=== PATIENT | female | born 1985 | race Caucasian/White ===

== ENCOUNTER 2017-03-05 07:13 | Inpatient (IN) | payer BC ==
[2017-03-05] VITALS (49 sets, daily range): BP systolic 91–159; BP diastolic 62–96; PULSE 69–133; TEMP 98.1–98.2
[~2017-03-05] VITALS: Ht 160 cm; Wt 80.5 kg
[2017-03-05 08:27] LABS: BASO % 0.5 % (0.0-2.0); EOS # 0.2 (0.0-0.7); EOS % 2.2 % (0-4.0); GRAN # 4.7 (1.4-6.5); GRAN % 59.9 % (42.2-75.2); HEMOGLOBIN 12.5 g/dl (12.5-16.0); LYMPH # 2.2 (1.2-3.4); LYMPH % 28.6 % (20.0-51.0); MEAN CELL VOLUME 88 fl (80.0-100.0); MEAN CORPUSCULAR HEMOGLOBIN 32 pg (27.0-31.0); MEAN CORPUSCULAR HGB CONC 36 g/dl (33.0-37.0); MEAN PLATELET VOLUME 11.3 fl (7.4-10.4); MONO # 0.7 (0.1-0.6); MONO % 8.3 % (1.7-9.3); PLATELET COUNT 192 K/mm3 (130-400); RED BLOOD COUNT 3.96 M/mm3 (4.10-5.30); REDCELL DISTRIBUTION WIDTH-CV 12.3 % (11.5-14.5); WHITE BLOOD COUNT 7.8 K/mm3 (4.8-10.8)
[2017-03-05 08:31] LABS: HEMATOCRIT 34.9 % (37.0-47.0)
[2017-03-06 00:30] VITALS: BP 148/82; PULSE 76; TEMP 97.8
[2017-03-06 05:10] VITALS: BP 123/70; PULSE 78; TEMP 97.7
[2017-03-06 09:30] VITALS: BP 127/71; PULSE 79; TEMP 97.6
[2017-03-06 13:30] VITALS: BP 139/98; PULSE 80; TEMP 97.6
[2017-03-06 16:59] VITALS: BP 111/62; PULSE 71; TEMP 97.8
[2017-03-06 20:30] VITALS: BP 129/93; PULSE 72; TEMP 97.5
[2017-03-07] VITALS: BP 130/84; PULSE 70
[2017-03-07] MEDS ORDERED: PERCOCET 325 MG1 TA2 PO (07:32)
[2017-03-07] MEDS ORDERED: IBU800 M1 PO (07:32)
[2017-03-07 10:00] VITALS: BP 141/90; PULSE 87; TEMP 97.1
== END 2017-03-07 16:45 | disposition home or self-care (01) | DRG 775 ==
LOC: OB 07:13 → LDR 07:13 → OB 20:30
PROVIDERS: Obstetrics & Gynecology
PROC: 10E0XZZ Delivery of Products of Conception, External Approach (ICD-10-PCS; principal; 2017-03-05)
PROC: 0KQM0ZZ Repair Perineum Muscle, Open Approach (ICD-10-PCS; 2017-03-05)
DX: O48.0 Post-term pregnancy (principal); O69.81X0 Labor and delivery complicated by cord around neck, without compression, not applicable or unspecified; O13.4 Gestational [pregnancy-induced] hypertension without significant proteinuria, complicating childbirth; O70.1 Second degree perineal laceration during delivery; Z3A.40 40 weeks gestation of pregnancy; Z37.0 Single live birth
CPT/HCPCS: J2590; J2795; J7120

== ENCOUNTER 2019-10-28 18:09 | Emergency (ER) | payer BC ==
[~2019-10-28] VITALS: Ht 160 cm; Wt 65.5 kg
[~2019-10-28 18:09] MED LIST: IBU800 M1 PO; PERCOCET 325 MG1 TA2 PO
[2019-10-28 18:21] VITALS: TEMP 98.7
[2019-10-28 18:58] LABS: BASO # 0.1 (0.0-0.2); BASO % 0.5 % (0.0-2.0); EOS # 0.1 (0.0-0.7); EOS % 1.4 % (0-4.0); GRAN # 7.1 (1.4-6.5); GRAN % 71.9 % (42.2-75.2); HEMATOCRIT 38.1 % (37.0-47.0); HEMOGLOBIN 13.7 g/dl (12.5-16.0); LYMPH % 19.8 % (20.0-51.0); MEAN CELL VOLUME 88 fl (80.0-100.0); MEAN CORPUSCULAR HEMOGLOBIN 32 pg (27.0-31.0); MEAN CORPUSCULAR HGB CONC 36 g/dl (33.0-37.0); MEAN PLATELET VOLUME 10.2 fl (7.4-10.4); MONO # 0.6 (0.1-0.6); PLATELET COUNT 223 K/mm3 (130-400); RED BLOOD COUNT 4.33 M/mm3 (4.10-5.30); REDCELL DISTRIBUTION WIDTH-CV 11.9 % (11.5-14.5)
[2019-10-28 19:08] LABS: ALBUMIN 4.6 gm/dL (3.5-5.0); BILIRUBIN,TOTAL 0.5 mg/dL (0.0-1.0); CALCIUM 9.5 mg/dL (8.4-10.2); CREATININE, serum 0.47 (0.52-1.25); POTASSIUM 3.6 mmol/L (3.4-5.0)
[2019-10-28 20:52] VITALS: BP 138/85; PULSE 86
== END 2019-10-28 20:59 | disposition home or self-care (01) ==
LOC: COL.ER 18:09
PROVIDERS: Physician Assistant
DX: O03.4 Incomplete spontaneous abortion without complication (principal)
CPT/HCPCS: J7030

== ENCOUNTER → 2021-02-18 | Outpatient (CLI) | payer BC ==
[~2021-02-18] MED LIST changes: +AMOXICILLIN 8751 TAB PO; +ASPIRIN 81M81 MG/TA2 PO; +MOTRIN 800800 MG/TAB PO; +PROCARDIA XL90 MG PO; +TYLENOL 325MG325 MG PO
== END ==
LOC: ZCOL.LAB 09:07
DX: Z20.822 Contact with and (suspected) exposure to COVID-19 (principal)

== ENCOUNTER 2021-02-22 06:09 | Inpatient (IN) | payer BC ==
[2021-02-22] VITALS (44 sets, daily range): BP systolic 107–155; BP diastolic 60–93; PULSE 71–134; TEMP 97.5–98.7
[~2021-02-22] VITALS: Ht 157.5 cm; Wt 85.9 kg
[~2021-02-22 06:09] MED LIST changes: -AMOXICILLIN 8751 TAB PO; -ASPIRIN 81M81 MG/TA2 PO; -MOTRIN 800800 MG/TAB PO; -PROCARDIA XL90 MG PO; -TYLENOL 325MG325 MG PO
--- NOTE | 2021-02-22 06:30 | NUR ---
PT AMBULATORY TO UNIT WITH /FOB. ASSISTED INTO GOWN AND PLACED ON EFM/TOCO. DENIES WATER BREAKING OR LEAKING OF FLUID. REPORTS POSITIVE MOVEMENT. EDUCATED ON POC AND ORIENTED TO LABOR ROOM. DENIES FURTHER QUESTIONS OR CONCERNS. CATEGORY 1 STRIP UPON ARRIVAL. PER PT REPORT AND TOCO READING, PT HAS NOT HAD ANY CONTRACTIONS PRIOR TO ADMISSION THIS MORNING.
[2021-02-22] MEDS ORDERED: PROCARDIA XL90 MG PO (06:59)
[2021-02-22] MEDS ORDERED: ASPIRIN 81M81 MG/TA2 PO (07:00)
[2021-02-22 07:33] LABS: BASO % 0.5 % (0.0-2.0); EOS # 0.2 (0.0-0.7); EOS % 2.5 % (0-4.0); GRAN # 5.3 (1.4-6.5); GRAN % 61.8 % (42.2-75.2); HEMOGLOBIN 11.5 g/dl (12.5-16.0); LYMPH # 2.4 (1.2-3.4); LYMPH % 27.5 % (20.0-51.0); MEAN CELL VOLUME 86 fl (80.0-100.0); MEAN CORPUSCULAR HEMOGLOBIN 30 pg (27.0-31.0); MEAN CORPUSCULAR HGB CONC 34 g/dl (33.0-37.0); MEAN PLATELET VOLUME 10.9 fl (7.4-10.4); MONO # 0.6 (0.1-0.6); MONO % 7.3 % (1.7-9.3); PLATELET COUNT 240 K/mm3 (130-400); RED BLOOD COUNT 3.88 M/mm3 (4.10-5.30); REDCELL DISTRIBUTION WIDTH-CV 13.6 % (11.5-14.5)
[2021-02-22 07:41] LABS: HEMATOCRIT 33.4 % (37.0-47.0)
--- NOTE | 2021-02-22 08:57 | NUR ---
AT BEDSIDE ASSESSING PT AND DISCUSSING POC. SVE /-2. AROM WITH CLEAR FLUID AT THIS TIME. CONTINUE WITH CURRENT IOL POC. PT MAY HAVE EPIDURAL WHENEVER SHE IS READY.
--- NOTE | 2021-02-22 10:39 | NUR ---
PT ASSISTED TO EDGE OF BED FOR EPIDURAL PLACEMENT. VIJI COCKTAIL LOUNGE MANAGER AT BEDSIDE DISCUSSING RISKS, CONSENTS SIGNED. DIFFICULTY TRACING EFM DUE TO MATERNAL POSITIONING. SINGLE SHOT @ 1030. PT TOLERATED PROCEDURE WELL. VITAL SIGNS REMAIN STABLE THROUGHOUT.
--- NOTE | 2021-02-22 11:28 | NUR ---
1128: 4 MINUTE DECEL INTO THE 60'S. PT HYPOTENSIVE. EPHEDRINE IV ADMINISTERED PER PROTOCOL. LR BOLUS INFUSING. PT TURNED TO LL POSITION. NO CHANGE IN EFM/DECEL. PT TURNED TO RIGHT LATERAL POSITION. HEART RATE BEGAN TO RECOVER. PT'S BP BEGINNING TO STABILIZE. PT DENIES SYMPTOMS OF HYPOTENSION. 1136: 2 MINUTE DECEL INTO THE 60'S. LR BOLUS CONTINUES INFUSING. HEART RATE BEGINS TO RECOVER WITH POSITION CHANGE. AT BEDSIDE HE WAS ROUNDING ON HIS PATIENTS OVER HIS LUNCH HOUR. NO NEW ORDERS AT THIS TIME. "MONITOR AND MANAGE THE BLOOD PRESSURE WITH CURRENT ORDERS." CATEGORY 1 STRIP FOLLOWING EVENT. MODERATE VARIABILITY. HEART RATE RETURNS TO BASELINE WITH ACCELERATIONS.
--- NOTE | 2021-02-22 14:55 | NUR ---
1455: AT BEDSIDE, SVE: COMPLETE, BEGINS PRACTICE PUSHING WITH PATIENT. PT MOVES HEAD WELL. WILL CONTINUE TO PUSH WITH THIS NURSE. 1536: OF VIABLE MALE PER . PLACED ON MATERNAL ABDOMEN. CORD CLAMPED X2 AND CUT BY FOB. CARE ASSUMED BY ANU ALEXANDER. MOTHER VITAL SIGNS STABLE. LOCHIA WNL. 1538: OF PLACENTA. PITOCIN BOLUS STARTED PER PROTOCOL. BEGINS REPAIR OF 2ND DEGREE PERINEAL LACERATION. LOCHIA REMAINS WNL. FUNDUS FIRM AT UMBILICUS. WILL CONTINUE PP RECOVERY PER PROTOCOL.
--- NOTE | 2021-02-22 17:45 | NUR ---
PT REPORTS FULL SENSATION TO BLE. ABLE TO ASSIST STAFF TO EDGE OF BED. EPIDURAL CATHETER REMOVED. ABLE TO FULLY BEAR WEIGHT. AMBULATORY TO RESTROOM. ASSISTED WITH KP CARE AND INTO NEW UNDERWEAR AND PAD. LOCHIA SCANT/NO CLOTS. FUNDUS FIRM AT UMBILICUS. TOLERATED AMBULATION WELL. DENIES DIZZINESS OR DECREASE IN BLE SENSATION. VITAL SIGNS REMAIN STABLE. PT ASSISTED TO ROOM 207 VIA WHEELCHAIR TO CONTINUE CARES. ORIENTED TO NEW ROOM AND MENU. DENIES FURTHER QUESTIONS AND CONCERNS AT THIS TIME. CALL LIGHT WITHIN REACH.
[2021-02-23 00:30] VITALS: BP 140/83; PULSE 84; TEMP 97.7
[2021-02-23 04:15] VITALS: BP 125/83; PULSE 83; TEMP 98
[2021-02-23] MEDS ORDERED: PERCOCET 325 MG1 TA2 PO (07:21)
[2021-02-23] MEDS ORDERED: MOTRIN 800800 MG/TAB PO (07:21)
[2021-02-23 08:00] VITALS: BP 131/97; PULSE 93; TEMP 97.5
--- NOTE | 2021-02-23 09:51 | NUR ---
PT HYPERTENSIVE THIS AM (131/97). AT BEDSIDE. ORDERS PO PROCARDIA 60MG DAILY TO BEGIN THIS AM.
--- NOTE | 2021-02-23 09:53 | NUR ---
Initial visit; Parents thanked Cylinder Machine Operator for offering congratulations and God's blessings for the of their son. Cylinder Machine Operator thanked family for choosing [facility].
[2021-02-23 13:00] VITALS: BP 129/85; PULSE 106; TEMP 98.1
[2021-02-23 16:45] VITALS: BP 144/95; PULSE 105; TEMP 98.5
--- NOTE | 2021-02-23 18:05 | NUR ---
CONTINUE 90MG PROCARDIA UPON DISCHARGE VORB PER ROLES
== END 2021-02-23 18:40 | disposition home or self-care (01) | DRG 807 ==
LOC: LDR 06:09 → OB 09:28
PROVIDERS: ADMIT Obstetrics & Gynecology
PROC: 10E0XZZ Delivery of Products of Conception, External Approach (ICD-10-PCS; principal; 2021-02-22)
PROC: 0KQM0ZZ Repair Perineum Muscle, Open Approach (ICD-10-PCS; 2021-02-22)
PROC: 10907ZC Drainage of Amniotic Fluid, Therapeutic from Products of Conception, Via Natural or Artificial Opening (ICD-10-PCS; 2021-02-22)
PROC: 3E033VJ Introduction of Other Hormone into Peripheral Vein, Percutaneous Approach (ICD-10-PCS; 2021-02-22)
DX: O10.02 Pre-existing essential hypertension complicating childbirth (principal); Z37.0 Single live birth; O70.1 Second degree perineal laceration during delivery; Z3A.39 39 weeks gestation of pregnancy
CPT/HCPCS: J2590; J2795; J7120

== ENCOUNTER 2021-02-28 15:04 | Day surgery (SDC) | payer BC ==
[2021-02-28] VITALS (9 sets, daily range): BP systolic 126–151; BP diastolic 82–94; PULSE 87–101; TEMP 87–98.2
[~2021-02-28 15:04] MED LIST changes: +ASPIRIN 81M81 MG/TA2 PO; +MOTRIN 800800 MG/TAB PO; +PROCARDIA XL90 MG PO
--- NOTE | 2021-02-28 15:15 | NUR ---
Pt arrived on unit ambulatory and escorted by for her scheduled procedure. Oriented to room, bed and call light within reach. Plan of care for D&C reviewed with pt and .
[2021-02-28 16:06] LABS: HEMOGLOBIN 10.2 g/dl (12.5-16.0); MEAN CELL VOLUME 86 fl (80.0-100.0); MEAN CORPUSCULAR HEMOGLOBIN 29 pg (27.0-31.0); MEAN CORPUSCULAR HGB CONC 34 g/dl (33.0-37.0); MEAN PLATELET VOLUME 10.1 fl (7.4-10.4); PLATELET COUNT 309 K/mm3 (130-400); RED BLOOD COUNT 3.47 M/mm3 (4.10-5.30); REDCELL DISTRIBUTION WIDTH-CV 13.8 % (11.5-14.5)
[2021-02-28 16:10] LABS: HEMATOCRIT 29.9 % (37.0-47.0)
[2021-02-28 16:19] LABS: ALBUMIN 3.2 gm/dL (3.5-5.0); BILIRUBIN,TOTAL 0.2 mg/dL (0.2-1.2); CREATININE, serum 0.61 mg/dL (0.57-1.11); POTASSIUM 3.5 mmol/L (3.5-4.5); TOTAL PROTEIN 7.2 gm/dL (6.2-8.1)
[2021-02-28] MEDS ORDERED: PROCARDIA XL90 MG PO (16:23)
[2021-02-28] MEDS ORDERED: TYLENOL 325MG325 MG PO (16:24)
--- NOTE | 2021-02-28 17:15 | NUR ---
Pt off unit to the OR
--- NOTE | 2021-02-28 17:50 | NUR ---
Pt back on the unit. Report received.
[2021-02-28] MEDS ORDERED: AMOXICILLIN 8751 TAB PO (17:57)
== END 2021-02-28 20:50 | disposition home or self-care (01) ==
LOC: OB 15:04 → SDCO 15:04 → OB 15:15 → SDCO 17:00
PROVIDERS: Obstetrics & Gynecology
DX: O73.1 Retained portions of placenta and membranes, without hemorrhage (principal); O16.5 Unspecified maternal hypertension, complicating the puerperium; O90.81 Anemia of the puerperium
CPT/HCPCS: OP; J0690; J2210; J2704; J3010; J7120